=== PATIENT | male | born 1970 | race Caucasian/White ===

== ENCOUNTER 2020-10-03 08:22 | Outpatient (CLI) | payer SELFPAY ==
--- NOTE | 2020-10-03 08:24 | MR_ITS ---
WS: [id number] MRI LUMBAR SPINE NONCONTRAST HISTORY: LOW BACK PAIN COMPARISON: None available. TECHNIQUE: Sagittal and axial multisequence imaging is submitted. Normal lumbar alignment with no compression fractures or marrow edema. Disc spaces and vertebral body heights are well-preserved. Conus terminates normally at L1. L1-L2: Moderate sized RIGHT foraminal disc protrusion with annular fissures. Disc is contacting the L 1 nerve root. Mild RIGHT foraminal stenosis. L2-L3: Mild annular disc bulging without facet and ligamentum flavum arthritis. L3-L4: Mild annular disc bulging with facet and ligamentum flavum arthritis. Very mild encroachment i nto the foramen with mild foraminal narrowing. L4-L5: Mild bilateral facet joint arthritis. L5-S1: Normal. Paravertebral soft tissues are normal. MR/MR lumbar spine wo con* [id number] IMPRESSION: 1. Moderate size RIGHT foraminal disc protrusion with annular fissures at L1-2 . Minimal contact on the RIGHT L1 nerve root and mild foraminal stenosis. 2. Mild bilateral foraminal narrowing at L3-4.
== END 2020-10-03 08:23 | disposition home or self-care (01) ==
PROVIDERS: Family Provider Family Medicine; PCP Nurse Practitioner Family; Visit Provider Nurse Practitioner Family
DX: M51.26 Other intervertebral disc displacement, lumbar region (principal); M48.061 Spinal stenosis, lumbar region without neurogenic claudication
CPT/HCPCS: 72148

== ENCOUNTER 2021-05-10 21:07 | Emergency (ER) | payer SELFPAY ==
[2021-05-10 21:20] VITALS: BP 148/82; PULSE 103; RESP 20; TEMP 38.2; O2SAT 95; BMI 32.8
--- NOTE | 2021-05-10 21:36 | ED_ITS ---
HPI - COVID General: Chief Complaint: COVID symptoms Stated Complaint: COVID+: DIFF BREATHING Time Seen by Provider: 05/10/21 21:17 Source: patient Mode of arrival: ambulatory Limitations: no limitations Triage information: Has fever, cough or shortness of breath . Exposure to COVID + person last 14 days History of Present Illness: HPI Narrative: Patient has been feeling unwell for 7 days. Tested positive for COVID-19 5 days ago. His primary care provider gave him azithromycin and dexamethasone. Patient states that he initially started feeling better but symptoms started worsening again. Symptoms include body aches, fever, chills, but no difficulty breathing. He has a pulse oximeter at home and his oxygen saturations has been above 90%. He is here to be evaluated because of the cough and chills. MD complaint: known COVID positive Prior covid testing: yes, results known COVID 19 common symptoms: positive fever(s), chills, cough, fatigue, body aches, headache(s), throat pain, nasal congestion and nausea; negative dyspnea, vomiting or diarrhea COVID 19 other sytmptoms: positive lethargy; negative chest pain, pleuritic pain, requiring oxygen, requiring more oxygen, respiratory distress, cyanosis, confusion or new neurological complaints Onset (ago): day(s) (7) Severity: moderate Pertinent comorbid conditions: hypertension COVID Results: No Data to Display Review of Systems General: Reports: 10 or more systems reviewed and unremarkable except in HPI and below Const: Reports: fever(s), chills, body aches and fatigue ENMT: Reports: throat pain and nasal congestion Card: Denies: chest pain Resp: Denies: dyspnea GI: Reports: nausea; Denies: vomiting or diarrhea Neuro: Reports: headache(s); Denies: confusion Physical Exam Const: COMMON NORMALS: no acute distress, average body habitus, patient oriented x3, no limitations, healthy appearing, alert and well nourished HENMT: COMMON NORMALS: normocephalic, atraumatic and moist oral mucous membranes HEAD & SCALP: normocephalic and atraumatic Neck/C-Spine: COMMON NORMALS: no meningeal signs and no JVD Resp: COMMON NORMALS: normal respiratory effort, No retractions, No use of accessory muscles, clear to auscultation bilaterally and percussion normal AUSCULTATION: clear to auscultation bilaterally PERCUSSION: percussion normal Cardio: COMMON NORMALS: no JVD, regular rate, regular rhythm, S1 normal heart sound present, S2 normal heart sound present, No gallops present (Cardio), No clicks present (Cardio), No murmurs present (Cardio), No rub (Cardio) and Peripheral pulses 2+ throughout RATE: regular rate RHYTHM: regular rhythm HEART SOUNDS: S1 normal heart sound present and S2 normal heart sound present PERIPHERAL PULSES: Peripheral pulses 2+ throughout GI: COMMON NORMALS: Normal to inspection, nondistended, normoactive bowel sounds present, Soft to palpation, non-tender, No hepatosplenomegaly present, no masses and no bruits PALPATION: Yes Soft to palpation and Yes No hepatosplenomegaly present Extremity: COMMON NORMALS: normal to inspection, full ROM, capillary refill normal, no calf tenderness and no pedal edema Neuro: COMMON NORMALS: patient oriented x3 SENSORIUM/ORIENTATION: Yes alert MENINGEAL SIGNS: Yes no meningeal signs Skin: COMMON NORMALS: no rashes or lesions noted, no wounds, turgor normal, no jaundice, no petechiae and no mottling GENERAL SKIN EXAM: no rashes or lesions noted and turgor normal Course Reevaluation(s): Reevaluation #1: Discussed his lab and imaging findings with him. Unremarkable. We will discharge him home with no new orders. He already has dexamethasone and he has a pulse oximeter at home. Advised him to continue to monitor his oxygen saturation levels and to return if it drops below 90%. He voiced understanding and is in agreement with the plan. Time: 23:37 Vital Signs: Vital signs: Vital Signs Temperature 99.9 F H 05/10/21 23:47 Pulse Rate 88 05/10/21 23:47 Respiratory Rate 16 05/10/21 23:47 Blood Pressure 119/84 05/10/21 23:47 Pulse Oximetry 93 05/10/21 23:47 MDM - COVID MDM Narrative: Medical decision making narrative: 50-year-old male with COVID- 19 who presents to the emergency department for evaluation. Symptoms have been going on for about 7 days but she continues to have fever and body aches. No difficulty breathing, no hypoxia in the ED. Evaluation unremarkable. He is discharged home with no new orders. Medical Records: Attestation: I reviewed the patient's medical records. Lab Data: Attestation: I reviewed the patient's lab results. Labs: Lab Results 05/10/21 05/10/21 05/10/21 Range/Units 22:01 22:01 22:01 WBC 17.6 H (4.0-10.0) 10^3/ uL RBC 4.96 (4.1-5.3) 10^6/u L Hgb 14.9 (11.7-16.6) g/dL Hct 44.6 (42.0-52.0) % MCV 89.9 (80-94) fL MCH 30.0 (28.0-34.0) pg MCHC 33.4 (30.0-36.0) g/dL RDW 12.4 (12.1-15.1) % Plt Count 256 (130-400) 10^3/c mm MPV 11.4 H (7.4-10.4) fL Neut % (Auto) 81.3 % Lymph % (Auto) 8.4 % Armstrong % (Auto) 8.5 % Eos % (Auto) 0.1 % Baso % (Auto) 0.3 % Neut # (Auto) 14.30 H (1.8-7.7) 10^3/u L Lymph # (Auto) 1.5 (0.8-4.8) 10^3/u L Armstrong # (Auto) 1.5 H (0.2-0.9) 10^3/u L Eos # (Auto) 0.0 (0.0-0.8) 10^3/u L Baso # (Auto) 0.1 (0.0-0.1) 10^3/u L Nucleated RBC % (a uto) 0 % Nucleated RBCs # 0.0 /100WBC Fibrinogen 579 H (174-498) mg/dL D-Dimer 0.57 (0-0.59) ug/mIFE U Sodium 134 L (136-145) mmol/L Potassium 3.3 L (3.5-5.1) mmol/L Chloride 93 L (98-107) mmol/L Carbon Dioxide 27 (22-29) mmol/L Anion Gap 17.3 (5-19) BUN 18 (6-20) mg/dL Creatinine 1.1 (0.7-1.2) mg/dL GFR Calculation 71.1 L (90-130) mL/min Glucose 95 (65-115) mg/dL Calculated Osmolal ity 280 L (285-295) mOsm/k g Lactic Acid (0.5-2.2) mmol/L Calcium 8.6 (8.5-10.5) mg/dL Total Bilirubin 0.8 (0.15-1.2) mg/dL AST 19 (0-40) U/L ALT 36 (0-41) U/L Alkaline Phosphata se 86 (40-130) IU/L Creatine Kinase 37 L (39-308) U/L C-Reactive Protein 45.8 H (0.0-4.9) mg/L Total Protein 7.3 (6.6-8.7) g/dL Albumin 4.1 (3.5-5.2) g/dL Globulin 3.2 (1.3-4.6) g/dL Procalcitonin 0.14 (0-0.5) ng/mL 07/25/ Range/Units 22:01 WBC (4.0-10.0) 10^3/ uL RBC (4.1-5.3) 10^6/u L Hgb (11.7-16.6) g/dL Hct (42.0-52.0) % MCV (80-94) fL MCH (28.0-34.0) pg MCHC (30.0-36.0) g/dL RDW (12.1-15.1) % Plt Count (130-400) 10^3/c mm MPV (7.4-10.4) fL Neut % (Auto) % Lymph % (Auto) % Armstrong % (Auto) % Eos % (Auto) % Baso % (Auto) % Neut # (Auto) (1.8-7.7) 10^3/u L Lymph # (Auto) (0.8-4.8) 10^3/u L Armstrong # (Auto) (0.2-0.9) 10^3/u L Eos # (Auto) (0.0-0.8) 10^3/u L Baso # (Auto) (0.0-0.1) 10^3/u L Nucleated RBC % (a uto) % Nucleated RBCs # /100WBC Fibrinogen (174-498) mg/dL D-Dimer (0-0.59) ug/mIFE U Sodium (136-145) mmol/L Potassium (3.5-5.1) mmol/L Chloride (98-107) mmol/L Carbon Dioxide (22-29) mmol/L Anion Gap (5-19) BUN (6-20) mg/dL Creatinine (0.7-1.2) mg/dL GFR Calculation (90-130) mL/min Glucose (65-115) mg/dL Calculated Osmolal ity (285-295) mOsm/k g Lactic Acid 1.3 (0.5-2.2) mmol/L Calcium (8.5-10.5) mg/dL Total Bilirubin (0.15-1.2) mg/dL AST (0-40) U/L ALT (0-41) U/L Alkaline Phosphata se (40-130) IU/L Creatine Kinase (39-308) U/L C-Reactive Protein (0.0-4.9) mg/L Total Protein (6.6-8.7) g/dL Albumin (3.5-5.2) g/dL Globulin (1.3-4.6) g/dL Procalcitonin (0-0.5) ng/mL Imaging Data: CXR: Attestation: I personally reviewed and interpreted this imaging study as follows: Radiologist's impression: [address] [id number] ReportSigned Patient: Iza Mcpherson #: [id number]: 1970Acct#:[id number]/Sex: 50 / MADM Date: 05/10/21Loc: ERRoom/Bed:Attending Dr: Ordering Provider/Ordering MD: Catarino Colbert [place] [facility] [place] Service: 05/10/21 Procedure(s): XR chest 1V portable [id number] Accession Number(s): [id number] Report Number: [id number] PROCEDURE INFORMATION: Exam: XR Chest Exam date and time: 05/10/2021 9:39 PM Age: 50 years old Clinical indication: Dyspnea; Additional info: JUANITA Espinoza TECHNIQUE: Imaging protocol: XR of the chest. Views: 1 view. COMPARISON: No relevant prior studies available. FINDINGS: Lungs: Lungs are clear bilaterally. Pleural spaces: No pleural effusion. No pneumothorax. Heart/Mediastinum: The cardiac silhouette and mediastinal contours are unremarkable. Bones/joints: Unremarkable for age. XR/XR chest 1V portable [id number] IMPRESSION: No acute cardiopulmonary process. Dictated By:Roro Kellogg MDSigned By:Roro Kellogg MDSigned Date/Time:05/10/212337DD/ 36 COVID Results: No Data to Display Monoclonal Antibody Treatments Inclusion/Exclusion Criteria weight >/= 40 kg and + direct Sars-Cov-2 test less than 7-10 days ago age not >/= 65, BMI not >/= 35, does not have diabetes, does not have CKD, not receiving immunosuppressive therapy, does not have immunosuppressive disease, not >/= 55 with hypertension, not >/= 55 with diabetes, not >/= 55 with COPD/lung disease, not 12-17y with BMI >/= 85th percentile, not 12-17y with heart disease, not 12-17y with sickle cell disease, not 12-17y with neurodevelopemental d/o, not 12-17y with asthma/RAD/lung disease and not 12-17y w/ center medical director dependence not requiring hospitalization, not requiring oxygen (if not chronically on oxygen) and no increase oxygen requirement (if chronically on oxygen) Plan for treatment Does not meet criteria (DO NOT GIVE) Discharge Plan Discharge Patient Disposition: Home Clinical Impression: COVID-19 Condition: Stable Discharge Orders: Discharge ED (Routine); Ordered 05/10/21 Ordered By: Catarino Colbert Referrals: Radha Hinds FNP-C [Primary Care Provider] - 1-3 days Discharge Diet: Usual diet Discharge Activity: Increase activity as tolerated Patient Instructions: Viral Syndrome (ED) Activity Restrictions/Additional Instructions: Return for any new or worsening symptoms. Follow-up with your primary care provider within 3 days via telemedicine. Complete the steroids that your primary care provider gave you. Check your oxygen saturations using your home pulse oximeter. If your oxygen levels drop and stay below 90% then you need to return to be evaluated. Coding Level of Care Code ED Striper for Rhonda Stokes
--- NOTE | 2021-05-10 21:39 | XRR_ITS ---
PROCEDURE INFORMATION: Exam: XR Chest Exam date and time: 05/10/2021 9:39 PM Age: 50 years old Clinical indication: Dyspnea; Additional info: JUANITA Espinoza TECHNIQUE: Imaging protocol: XR of the chest. Views: 1 view. COMPARISON: No relevant prior studies available. FINDINGS: Lungs: Lungs are clear bilaterally. Pleural spaces: No pleural effusion. No pneumothorax. Heart/Mediastinum: The cardiac silhouette and mediastinal contours are unremarkable. Bones/joints: Unremarkable for age. XR/XR chest 1V portable [id number] IMPRESSION: No acute cardiopulmonary process.
[2021-05-10 22:00] VITALS: BP 143/91; PULSE 98; RESP 17; O2SAT 93; O2SAT 95
[2021-05-10 22:14] LABS: Basophils # 0.1 10^3/uL (0.0-0.1); Basophils % 0.3 %; Eosinophils % 0.1 %; Hematocrit 44.6 % (42.0-52.0); Hemoglobin 14.9 g/dL (11.7-16.6); Lymphocytes # 1.5 10^3/uL (0.8-4.8); Lymphocytes % 8.4 %; Mean Corpuscular HGB Conc 33.4 g/dL (30.0-36.0); Mean Corpuscular Volume 89.9 fL (80-94); Mean Platelet Volume 11.4 fL (7.4-10.4); Monocytes # 1.5 10^3/uL (0.2-0.9); Monocytes % 8.5 %; Neutrophils % 81.3 %; Nucleated Red Blood Cells % 0 %; Platelet Count 256 10^3/cmm (130-400); Red Blood Count 4.96 10^6/uL (4.1-5.3); Red Cell Distribution Width 12.4 % (12.1-15.1); White Blood Count 17.6 10^3/uL (4.0-10.0)
[2021-05-10 22:30] LABS: Fibrinogen 579 mg/dL (174-498)
[2021-05-10 22:33] LABS: D Dimer 0.57 ug/mIFEU (0-0.59)
[2021-05-10 22:34] LABS: Lactic Sepsis W/Reflex 1.3 mmol/L (0.5-2.2)
[2021-05-10 22:57] LABS: Alanine Aminotransferase 36 U/L (0-41); Albumin Level 4.1 g/dL (3.5-5.2); Alkaline Phosphatase 86 IU/L (40-130); Anion Gap 17.3 (5-19); Aspartate Amino Transferase 19 U/L (0-40); Blood Urea Nitrogen 18 mg/dL (6-20); C Reactive Protein 45.8 mg/L (0.0-4.9); Calcium 8.6 mg/dL (8.5-10.5); Carbon Dioxide 27 mmol/L (22-29); Chloride 93 mmol/L (98-107); Creatine Phosphokinase 37 U/L (39-308); Creatinine Clr Calc Pharmacy 100.9015; Globulin 3.2 g/dL (1.3-4.6); Glomerular Filtration Rate 71.1 mL/min (90-130); Glucose 95 mg/dL (65-115); Osmolality Calculated 280 mOsm/kg (285-295); Potassium 3.3 mmol/L (3.5-5.1); Sodium 134 mmol/L (136-145); Total Bilirubin 0.8 mg/dL (0.15-1.2); Total Protein 7.3 g/dL (6.6-8.7)
[2021-05-10 23:01] LABS: Procalcitonin 0.14 ng/mL (0-0.5)
[2021-05-10 23:47] VITALS: BP 119/84; PULSE 88; RESP 16; TEMP 37.7; O2SAT 93
== END 2021-05-10 23:48 | disposition home or self-care (01) ==
PROVIDERS: Emergency Provider Family Medicine; PCP Nurse Practitioner Family
DX: U07.1 COVID-19 (principal)
CPT/HCPCS: 71045; 80053; 82550; 83605; 84145; 85025; 85378; 85384; 86140; 99283

== ENCOUNTER → 2023-03-10 08:36 | Outpatient (BNVA) | payer MEDICAID, SELFPAY | PROVIDERS: PCP Nurse Practitioner Family; Referring Provider Nurse Practitioner Family; Visit Provider Orthopaedic Surgery | DX: M47.22 Other spondylosis with radiculopathy, cervical region (principal); M48.061 Spinal stenosis, lumbar region without neurogenic claudication; M25.78 Osteophyte, vertebrae | CPT/HCPCS: 72050; 99204 ==

== ENCOUNTER → 2023-03-23 13:13 | Outpatient (BNVA) | payer MEDICAID, SELFPAY | PROVIDERS: PCP Nurse Practitioner Family; Visit Provider Orthopaedic Surgery | DX: M67.912 Unspecified disorder of synovium and tendon, left shoulder (principal) | CPT/HCPCS: 20610; 99203; J0702; J3490 ==

== ENCOUNTER → 2023-04-12 10:11 | Outpatient (BNVA) | payer MEDICAID, SELFPAY | PROVIDERS: PCP Nurse Practitioner Family; Referring Provider Orthopaedic Surgery; Visit Provider Anesthesiology Pain Medicine | DX: M47.22 Other spondylosis with radiculopathy, cervical region (principal); M79.602 Pain in left arm; M79.601 Pain in right arm | CPT/HCPCS: 99205 ==

== ENCOUNTER → 2023-04-26 14:57 | Outpatient (BNVA) | payer MEDICAID, SELFPAY | PROVIDERS: PCP Nurse Practitioner Family; Visit Provider Nurse Practitioner Family | DX: M67.912 Unspecified disorder of synovium and tendon, left shoulder (principal); M47.22 Other spondylosis with radiculopathy, cervical region | CPT/HCPCS: 99213 ==

== ENCOUNTER → 2023-04-28 14:58 | Outpatient (BNVA) | payer MEDICAID, SELFPAY | PROVIDERS: PCP Nurse Practitioner Family; Visit Provider Anesthesiology Pain Medicine | DX: M54.12 Radiculopathy, cervical region (principal) | CPT/HCPCS: 62321; J1100 ==

== ENCOUNTER → 2023-05-12 09:50 | Outpatient (BNVA) | payer MEDICAID, SELFPAY | PROVIDERS: PCP Nurse Practitioner Family; Visit Provider Anesthesiology Pain Medicine | DX: M47.22 Other spondylosis with radiculopathy, cervical region | CPT/HCPCS: 99214 ==

== ENCOUNTER → 2023-05-26 15:27 | Outpatient (BNVA) | payer MEDICAID, SELFPAY | PROVIDERS: PCP Nurse Practitioner Family; Visit Provider Orthopaedic Surgery | DX: M47.12 Other spondylosis with myelopathy, cervical region (principal); M50.223 Other cervical disc displacement at C6-C7 level; M50.222 Other cervical disc displacement at C5-C6 level; M50.221 Other cervical disc displacement at C4-C5 level | CPT/HCPCS: 36415; 72050; 80053; 81003; 85025; 99214 ==

== ENCOUNTER 2023-06-17 12:11 | Inpatient (IN) | payer MEDICAID, SELFPAY ==
[2023-06-07 12:37] VITALS: BMI 33.5
[2023-06-17] VITALS (14 sets, daily range): BP systolic 130–186; BP diastolic 60–107; PULSE 70–104; RESP 16–17; TEMP 36.1–36.9; O2SAT 91–99; BMI 34.8
--- NOTE | 2023-06-17 | XR_ITS ---
WS: [id number] Cervical spine, C-arm fluoroscopy views, 06/17/2023 Clinical Data: SURGICAL PROCEDURE Comparison: Cervical spine, 05/26/2023 Findings: Dr. Price performed an anterior cervical disc fusion C4-C7. Impression: Anterior cervical disc fusion
--- NOTE | 2023-06-17 07:49 | W.PM.OPSUD ---
Surgery/Procedure H&P Update DATE OF PROCEDURE: June 17, 2023 DATE H&P PERFORMED: 05/26/23 H&P UPDATE INFORMATION: I have reviewed H&P completed within last 30 days, I have examined patient prior to procedure and No changes to prior documentation PREOP DIAGNOSIS: Cervical spondylosis with myelopathy PLANNED PROCEDURE: Operation Date: 06/17/23 08:45 Proposed Procedures p 34175 C4/5, 27831 C5/6, 33418 C6/7, 21393 Instrumentation, allograft: M47.12 cervical spondylosis with myelopathy(Not Applicable) - Rocky Price DO
[2023-06-17 07:53] LABS: Glucose Point of Care 120 mg/dL (70-110)
[2023-06-17] MEDS: sodium chloride 0.9% 1,000 ML 30 ML IV (07:54)
--- NOTE | 2023-06-17 08:07 | ANES.PREANE2 ---
Pre-Anesthetic Assessment Height/Weight: Height 1.8 m Weight 113.398 kg O2 Del Method Room Air 06/17/23 07:27 Preop Diagnosis: Cervical spondylosis with myelopathy Operation Date: 06/17/23 08:45 Proposed Procedures p 55699 C4/5, 42438 C5/6, 40302 C6/7, 80016 Instrumentation, allograft: M47.12 cervical spondylosis with myelopathy(Not Applicable) - Rocky Price DO Familial anesthetic complications: None Was Beta Jared taken within 24 hours: N/A Was Clonidine taken within 24 hours: N/A Last intake: > 8hrs Social No alcohol and No tobacco Exam alert, oriented x 3, clear to auscultation bilaterally and regular rate & rhythm Airway Mallampati: Class III Dentition: other (missing) Pulmonary Sleep Apnea CV/HEM Hypertension Metabolic Diabetes Mellitus and Hyperlipidemia Anesthetic Plan ASA status: 3 Anesthesia: General Risk of > 500 ml blood loss (7ml/kg in children): No Medications/Allergies Home Medications Medication Instructions Recorded Confirmed Last Taken Type atorvastatin 20 mg tablet 20 mg PO DAILY 03/23/23 06/17/23 06/16/23 History buspirone 15 mg tablet 15 mg PO BID 03/23/23 06/17/23 06/17/23 History duloxetine 60 mg capsule,delayed 60 mg PO DAILY 03/23/23 06/17/23 06/16/23 History release lisinopril 10 mg tablet 10 mg PO DAILY 03/23/23 06/16/23 06/07/23 History alprazolam 0.25 mg tablet (Xanax) 0.25 mg PO DAILY PRN Anxiety 04/26/23 06/16/23 Unknown History cholecalciferol (vitamin D3) 10 10 mcg PO DAILY 04/26/23 06/17/23 06/17/23 History mcg (400 unit) capsule mecobalamin (vitamin B12) 1,000 1,000 mcg PO DAILY 04/26/23 06/17/23 06/16/23 History mcg lozenges metformin 500 mg tablet 500 mg PO BID 04/26/23 06/17/23 06/16/23 History nebivolol 10 mg tablet (Bystolic) 10 mg PO DAILY 04/26/23 06/17/23 06/17/23 History rabeprazole 20 mg tablet,delayed 20 mg PO DAILY 04/26/23 06/17/23 06/16/23 History release [id number] Bone Growth Stimulator #1 ea 06/10/23 Unknown Rx Allergies Allergy/AdvReac Type Severity Reaction Status Date / Time No Known Allergies Allergy Verified 06/16/23 14:15 Current Medications Generic Name Dose Route Start Last Admin Trade Name Freq PRN Reason Stop Dose Admin Sodium Chloride 1,000 mls @ 30 mls/hr 06/17/23 07:30 06/17/23 07:54 Sodium Chloride 0.9% IV 06/18/23 07:29 30 mls/hr .Q24H PIETRO Administration PFSH Anesthesia Social History Smoking and tobacco status: never smoked Alcohol intake: current Alcohol intake frequency: holidays/special occasions only Marital status: Current occupational status: unemployed Data Anesthesia Cardiac Studies: No Data to Display
[2023-06-17] MEDS: ceFAZolin 2,000 MG in sodium chloride 0.9% (plus) 50 ML 100 MG IV ×2 (09:15→16:25)
[2023-06-17] MEDS: lidocaine-epi 1% 20 mL INJ INJECTION (10:07)
--- NOTE | 2023-06-17 11:50 | PM.OP ---
Operative Report Date of procedure: June 17, 2023 Pre-op diagnosis: Cervical spondylosis with radiculopathy and myelopathy. Post-op diagnosis: same Procedure done: 1. Anterior diskectomy C4/5 2. Anterior diskectomy C5/6 3. Anterior discectomy C6/7 4. Insertion of cage C4/5 5. Insertion of cage C5/6 6. Insertion of Cage C6/7 7. Instrumentation with anterior plate from C4-C7 8. Use of allograft Surgeon: Rocky Price DO Right Of Way Agent: None Estimated blood loss (mL): 25 Procedure: 1. Anterior diskectomy C4/5 2. Anterior diskectomy C5/6 3. Anterior discectomy C6/7 4. Insertion of cage C4/5 5. Insertion of cage C5/6 6. Insertion of Cage C6/7 7. Instrumentation with anterior plate from C4-C7 8. Use of allograft The patient was taken to the operating room, where he underwent general endotracheal anesthesia without complications. He was then positioned supine on the operating table, and all areas of impingement were well padded. The arms were carefully padded and tucked at his sides. A roll was placed between the shoulder blades.. An x-ray was done to determine the appropriate level for the skin incision. The entire neck was then sterilely prepped and draped in the usual fashion. Neuromonitoring was attached prior to prepping. A transverse skin incision was made and carried down to the platysma muscle. This was then split in line with its fibers. Blunt dissection was carried down medial to the carotid sheath and lateral to the trachea and esophagus until the anterior cervical spine was visualized. A needle was placed into a disc and an x-ray was done to determine its location. The longus colli muscles were then elevated bilaterally with the electrocautery unit. Self-retaining retractors were placed deep to the longus colli muscle. Attention was brought to the C4/5 level that was confirmed on x-ray. A caspar pin was placed into the C4 vertebrae and the C5 vertebrae. The disk space was then distracted. The microscope was then brought in. A radical anterior discectomies were performed at C4/5. This included complete removal of the anterior annulus, nucleus, and posterior annulus. The posterior longitudinal ligament was removed as were the posterior osteophytes. Foraminotomies were then accomplished bilaterally. This was done using a high speed dana, kerrison rongeurs and curretes Once all of this was accomplished, the curved currette was used to check for any residual compression. The central canal was wide open as were the foramen. A high-speed bur was used to remove the cartilaginous endplates above and below the interspace. Bleeding cancellous bone was exposed. The disc space were measured and appropriate size cage were placed sterilely onto the field. Allograft graft was packed into the cages. The cage was then placed and there was good juxtaposition against the bleeding decorticated surfaces and good distraction of each interspace. Attention was brought to the next interspace. The [place] pins were removed. Bone wax was used to prevent any bleeding from occurring at the pin sites. Attention was brought to the C5/6 level that was confirmed on x-ray. A caspar pin was placed into the C5 vertebrae and the C6 vertebrae. The disk space was then distracted. The microscope was then brought in. A radical anterior discectomies were performed at C5/6. This included complete removal of the anterior annulus, nucleus, and posterior annulus. The posterior longitudinal ligament was removed as were the posterior osteophytes. Foraminotomies were then accomplished bilaterally. This was done using a high speed dana, kerrison rongeurs and curretes Once all of this was accomplished, the curved currette was used to check for any residual compression. The central canal was wide open as were the foramen. A high-speed bur was used to remove the cartilaginous endplates above and below the interspace. Bleeding cancellous bone was exposed. The disc space were measured and appropriate size cage were placed sterilely onto the field. Allograft graft was packed into the cages. The cage was then placed and there was good juxtaposition against the bleeding decorticated surfaces and good distraction of each interspace. Attention was brought to the next interspace. The [place] pins were removed. Bone wax was used to prevent any bleeding from occurring at the pin sites. Attention was brought to the C6/7 level that was confirmed on x-ray. A caspar pin was placed into the C6 vertebrae and the C7 vertebrae. The disk space was then distracted. The microscope was then brought in. A radical anterior discectomies were performed at C6/7. This included complete removal of the anterior annulus, nucleus, and posterior annulus. The posterior longitudinal ligament was removed as were the posterior osteophytes. Foraminotomies were then accomplished bilaterally. This was done using a high speed dana, kerrison rongeurs and curretes Once all of this was accomplished, the curved currette was used to check for any residual compression. The central canal was wide open as were the foramen. A high-speed bur was used to remove the cartilaginous endplates above and below the interspace. Bleeding cancellous bone was exposed. The disc space were measured and appropriate size cage were placed sterilely onto the field. Allograft graft was packed into the cages. The cage was then placed and there was good juxtaposition against the bleeding decorticated surfaces and good distraction of each interspace. Attention was brought to the next interspace. The [place] pins were removed. Bone wax was used to prevent any bleeding from occurring at the pin sites. The appropriate size anterior cervical locking plate was chosen and bent into gentle lordosis. Two screws were then placed into each of the vertebral bodies at C4, C5, C6 and C7. There was excellent purchase. A final x-ray was done confirming good position of the hardware and Cages. The locking screws were then applied, also with excellent purchase. Following a final copious irrigation, there was good hemostasis and no dural leaks. The carotid pulse was strong. The wounds were then closed in layers using 2-0 Vicryl suture for the platysma muscle, 2-0 Vicryl suture for the subcutaneous tissue, and 4-0 monocryl suture in a subcuticular skin closure. Glue was placed followed by application of a sterile dressing. The drain was hooked to bulb suction. A soft collar was applied. The patient was then carefully returned to the supine position on his hospital bed where he was reversed and extubated and taken to the recovery room having tolerated the procedure well.
--- NOTE | 2023-06-17 12:50 | ANE.PACU2 ---
Inpatient post-anesthesia follow up: Airway intact: Yes Vital signs: Temperature 98.2 F Pulse Rate 89 Respiratory Rate 16 Blood Pressure 157/92 Pulse Oximetry 93 Oxygen Delivery Me thod Room Air Oxygen Flow Rate 6 Fraction of Inspir ed Oxygen Hydration adequate: Yes Nausea and vomiting: No Pain level: 1 Mental status: Baseline
[2023-06-17] MEDS: lactated ringers 1,000 ML 90 ML IV (13:29)
[2023-06-17] MEDS: ketorolac 30 mg/mL INJ IVP (15:31)
[2023-06-17] MEDS: metformin 500 mg Tablet PO (17:29)
[2023-06-17] MEDS: docusate sodium 100 mg Capsule PO (17:29)
[2023-06-17] MEDS: BuSPIRONE 10 mg Tablet 15 MG PO (17:29)
[2023-06-17] MEDS: ALPRAZolam 0.5 mg Tablet 0.25 MG PO (21:36)
[2023-06-17] MEDS: HYDROcodone-acetaminophen 5-325 mg Tablet PO (21:51)
[2023-06-18] MEDS: ceFAZolin 2,000 MG in sodium chloride 0.9% (plus) 50 ML 100 MG IV ×2 (01:42→09:27)
[2023-06-18] MEDS: lactated ringers 1,000 ML 90 ML IV (01:43)
[2023-06-18 03:56] VITALS: BP 152/84; PULSE 101; RESP 15; TEMP 36.6; O2SAT 94
[2023-06-18 07:49] VITALS: BP 151/81; PULSE 95; RESP 16; TEMP 36.3; O2SAT 97
[2023-06-18] MEDS: docusate sodium 100 mg Capsule PO (09:25)
[2023-06-18] MEDS: cyanocobalamin 1,000 mcg Tablet 1000 MCG PO (09:25)
[2023-06-18] MEDS: metformin 500 mg Tablet PO (09:26)
[2023-06-18] MEDS: BuSPIRONE 10 mg Tablet 15 MG PO (09:26)
[2023-06-18] MEDS: pantoprazole DR 40 mg Tablet PO (09:27)
[2023-06-18] MEDS: lisinopril 10 mg Tablet PO (09:27)
[2023-06-18] MEDS: HYDROcodone-acetaminophen 5-325 mg Tablet PO (09:37)
[2023-06-18] MEDS: cetylpyridinium Lozenge 1 EACH MUCOUS MEM (09:39)
--- NOTE | 2023-06-18 10:26 | P.DS_ITS ---
Discharge Providers Date of Admission: 06/17/23 12:11 Date of Discharge: June 18, 2023 Attending Provider at Admission: Rocky Price DO Attending Provider at Discharge: Rocky Price DO Primary Care Provider: Radha Hinds Reason for Visit Reason for Visit: [id number], M47.12 Hospital Course Hospital Course Doing well drain came out last night. He is having swallowing difficulties. However reassured him that these typically get better within the next couple days. Physical Exam Narrative: Patient's hands and elbows feel pain-free. Discontinued swallowing problems. Patient is currently in the collar I told him to loosen the collar and when he eats to take the collar off. Urinary Catheter Management: Naidu: Cath Placed During This Visit: yes, but has since been removed by the nurse Reason for Continuing Indwelling Catheter: Not indwelling catheter Urinary Catheter Date of Insertion: 06/17/23 Urinary Catheter Time of Insertion: 09:45 Date Urinary Catheter Removed: 06/18/23 Time Urinary Catheter Discontinued: 09:50 Discharge Data Studies Completed and Pending Pending at discharge Category Date Time Status C-arm Fluoroscopy 98649 Routine Exams 06/17/23 07:28 Taken Laboratory Results POC Glucose 120 mg/dL (70-110) H 06/17/23 07:50 Vitals Last Vital Signs Temp 97.4 F L 06/18/23 07:49 Pulse 95 06/18/23 07:49 Resp 16 06/18/23 07:49 BP 151/81 06/18/23 07:49 Pulse Ox 97 06/18/23 07:49 O2 Del Method Nasal Cannula 06/18/23 07:49 O2 Flow Rate 2 06/18/23 07:49 Discharge Plan Discharge Patient Disposition: Home Condition: Stable Prescriptions: New hydrocodone-acetaminophen 5-325 mg tablet 1 - 2 tab PO .Q4-6H Qty: 40 0RF Continued atorvastatin 20 mg tablet 20 mg PO DAILY lisinopril 10 mg tablet 10 mg PO DAILY buspirone 15 mg tablet 15 mg PO BID duloxetine 60 mg capsule,delayed release(DR/EC) 60 mg PO DAILY metformin 500 mg tablet 500 mg PO BID nebivolol [Bystolic] 10 mg tablet 10 mg PO DAILY rabeprazole 20 mg tablet,delayed release (DR/EC) 20 mg PO DAILY alprazolam [Xanax] 0.25 mg tablet 0.25 mg PO DAILY PRN (Reason: Anxiety) cholecalciferol (vitamin D3) 10 mcg (400 unit) capsule 10 mcg PO DAILY mecobalamin (vitamin B12) 1,000 mcg lozenge 1,000 mcg PO DAILY Rx Instructions: allow to dissolve in mouth OR may chew lightly before swallowing (DME) E0748 Bone Growth Stimulator See Rx Instructions .Route .MEDSUPPLY Qty: 1 0RF Rx Instructions: As directed Discharge Orders: Discharge Order (Routine); Ordered 06/18/23 Ordered By: Rocky Price Discharge Diet: Advance as tolerated Discharge Activity: Limit activity as instructed Activity Restrictions/Additional Instructions: Thank you for choosing [facility] for your care! The following is a list of instructions, from your provider, to follow upon your discharge to ensure you have the optimal recovery from your recent injury or surgery. Anterior Cervical Discectomy and Fusion: What to Expect at Home Your Recovery Follow-up care is a costello part of your treatment and safety. Be sure to make and go to all appointments, and call your doctor if you are having problems. If you do not already have a follow-up appointment made, call office in the next 1-3 days to make follow up appointment for 2 weeks at [phone]. It is also a good idea to know your test results and keep a list of the medicines you take. You can expect your neck to feel stiff or sore after surgery. This should improv e in the weeks after surgery. But it may take 4 to 6 months for you to get better completely. You may have trouble sitting or standing in one position for very long and may need pain medicine in the weeks after your surgery. It may take 4 to 6 weeks to get back to your usual activities, but it may depend on what kind of surgery you had. Your throat will feel sore and it may be difficult to swallow for the first 3 days after your surgery. As long as you can get liquids down without difficulty, this should slowly improve, otherwise call our office or seek medical attention if it becomes increasingly difficult to get anything down including liquids. Avoid hot liquids for first 3-5 days. Soothing foods/liquids such as jello, pudding, and luke warm soups are recommended until swallowing improves. Staying elevated will also help, it's advised you keep propped up at while sleeping to help reduce the swelling. You may use an ice pack directly on your incision or around it on the front of your neck, using a cloth to protect your skin; and a heating pad to the back of your neck as needed. Do not use over the counter anti-inflammatory medications (Ibuprofen, Motrin, Aleve, Advil, etc) Taking these meds after having a fusion can delay fusion rates, we recommend you avoid them for the first 3 months after your surgery[address] Dr. Price may advise you to work with a physical therapist to strengthen the muscles around your neck and back - this will be discussed at your follow - up appointments. The pain or numbness you were having in your arms before surgery should get better or go away completely. This care sheet gives you a general idea about how long it will take for you to recover. But each person recovers at a different pace. Follow the steps below to get better as quickly as possible. How can you care for yourself at home? Activity ? Rest when you feel tired. Getting enough sleep will help you recover. ? Try to walk each day. Start by walking a little more than you did the day before. Bit by bit, increase the amount you walk. Walking boosts blood flow and helps prevent pneumonia and constipation. Walking may also decrease your muscle soreness after surgery. ? No lifting anything that is more that 5 pounds. This may include heavy grocery bags and milk containers, a heavy briefcase or backpack, cat litter or dog food bags, a child, or a vacuum commercial or institutional cleaner. ? Avoid strenuous activities, such as bicycle riding, jogging, weightlifting, or aerobic exercise, until your doctor says it is okay. ? Do not drive until your follow-up visit after your surgery, or until your doctor says it isokay. ? Avoid taking long car trips for 2 to 4 weeks after surgery. Your neck may become tired and painful from sitting too long in one position. ? You will probably need to take 4 to 6 weeks off from work. It depends on the type of work you do and how you feel. ? You may have sex as soon as you feel able, but avoid positions that put stress on your neck or cause pain. Diet ? You can eat your normal diet. If your stomach is upset, try bland, low-fat foods like plain rice, broiled chicken, toast, and yogurt ? Drink plenty of fluids. If you have kidney, heart, or liver disease and have to limit fluids, talk with your doctor before you increase the amount of fluids you drink. ? You may notice that your bowel movements are not regular right after your surgery. This is common. Try to avoid constipation and straining with bowel movements. You may want to take a fiber supplement every day. If you have not had a bowel movement after a couple of days, ask your doctor about taking a mild laxative. Medicines ? Take pain medicines exactly as directed. 1. If Dr. Price gave you a prescription medicine for pain, take lt as prescribed. 2. Do not take two or more pain medicines at the same time unless the doctor told you to. Many pain medicines have acetaminophen, which is Tylenol. Too much acetaminophen {Tylenol) can be harmful. 3. If you think your pain pill is making you sick to your stomach: 4. Take your pills after meals (unless your doctor has told you not to). 5. Ask your Dr. for a different pain pill. Incisioncare ? Remove your dressing 48hours after your surgery. Ok to shower and get the incision wet. Do not overtly wash your incision. When done, pad dry, leave open to air thereafter. Avoid creams and ointments directly on your incision. ? Your sutures in the incision will dissolve and fall out on their own. ? Keep the area clean and dry. You may cover it with a gauze bandage if it weeps or rubs against clothing; if you choose to do this, change the dressing everyday. Other instructions ? Use a heating pad, hot water bottle, or gentle massage on your back to reduce stiffness. Avoid putting heat on your incision When should you call for help? ? Call 911 anytime you think you may need emergency care. For example, call if: ? You pass out (lose consciousness). ? You have sudden chest pain and shortness of breath, or you cough upblood. ? You cannot swallow. ? You have severe pain in your neck or back. ? Call your Dr. or seek immediate medical care if: ? You have pain that does not get better after you take pain pills. ? You have loose stitches, or your incision comes open. ? You have blood or fluid draining from the incision. ? You have signs of infection, such as: 1. Increased pain, swelling, warmth, or redness. 2. Red streaks leading from the site. 3. Pus draining from the site. 4. Swollen lymph nodes in your neck or armpits. 5. A fever. ? You have severe pain in your arms. ? You have new or increased weakness or numbness in your arms. ? Watch closely for any changes in your health, and be sure to contact your doctor if: ? You do not have a bowel movement after taking a laxative. Discharge Attestations Time Spent in Discharge Care*: less than 30 min Quality Metrics Clinical Quality Measures [ No reported AMI, CVA or VTE this stay] Coding Level of Care Code Acute Code for Chg Fwd Diagnoses
[2023-06-18] MEDS: ALPRAZolam 0.5 mg Tablet 0.25 MG PO (11:00)
[2023-06-18 12:26] VITALS: BP 151/81; PULSE 95; RESP 16; TEMP 36.3; O2SAT 97
== END 2023-06-18 12:10 | disposition home or self-care (01) | DRG 473 ==
LOC: MEDSURG 14:11
PROVIDERS: Admitting Provider Orthopaedic Surgery; PCP Nurse Practitioner Family; Visit Provider Orthopaedic Surgery
PROC: 0RB30ZZ Excision of Cervical Vertebral Disc, Open Approach (ICD-10-PCS; CPT 22551; principal; 2023-06-17 08:45)
DX: M47.12 Other spondylosis with myelopathy, cervical region (principal)
CPT/HCPCS: 36416; 51702; 72040; 76000; 82962; 94660; 97110; 97161; 97530; C1713; C1763; C9359; J0690; J1100; J1170; J1885; J2250; J2405; J2704; J3010; J3490; J7030; J7120

== ENCOUNTER → 2023-06-28 10:37 | Outpatient (BNVA) | payer MEDICAID, SELFPAY | PROVIDERS: PCP Nurse Practitioner Family; Visit Provider Physician Assistant | DX: Z47.89 Encounter for other orthopedic aftercare; Z98.1 Arthrodesis status | CPT/HCPCS: 72040; 99024 ==

== ENCOUNTER → 2023-07-26 13:27 | Outpatient (BNVA) | payer MEDICAID, SELFPAY | PROVIDERS: PCP Nurse Practitioner Family; Visit Provider Physician Assistant | DX: Z98.1 Arthrodesis status (principal); Z47.89 Encounter for other orthopedic aftercare; M25.512 Pain in left shoulder | CPT/HCPCS: 72040; 99024; 99213 ==

== ENCOUNTER → 2023-08-11 09:55 | Outpatient (BNVA) | payer MEDICAID, SELFPAY | PROVIDERS: PCP Nurse Practitioner Family; Visit Provider Anesthesiology Pain Medicine | DX: M25.512 Pain in left shoulder (principal); M54.9 Dorsalgia, unspecified; M47.22 Other spondylosis with radiculopathy, cervical region | CPT/HCPCS: 99214 ==

== ENCOUNTER → 2023-09-06 13:49 | Outpatient (BNVA) | payer MEDICAID, SELFPAY | PROVIDERS: PCP Nurse Practitioner Family; Visit Provider Physician Assistant | DX: Z98.1 Arthrodesis status (principal); Z47.89 Encounter for other orthopedic aftercare; M25.512 Pain in left shoulder | CPT/HCPCS: 72040; 99214 ==

== ENCOUNTER → 2023-09-12 10:18 | Outpatient (BNVA) | payer MEDICAID, SELFPAY | PROVIDERS: PCP Nurse Practitioner Family; Visit Provider Anesthesiology Pain Medicine | DX: M54.9 Dorsalgia, unspecified (principal); M47.22 Other spondylosis with radiculopathy, cervical region | CPT/HCPCS: 99213 ==

== ENCOUNTER 2023-10-05 06:55 | Outpatient (CLI) | payer MEDICAID, SELFPAY ==
--- NOTE | 2023-10-05 07:15 | MR_ITS ---
WS: [id number] MRI LEFT SHOULDER HISTORY: M25.512 - Pain in left shoulder COMPARISON: 02/24/2023 TECHNIQUE: Multiplanar sequences of the shoulder joint are submitted. Mild AC joint arthropathy. Narrowing of the AC joint with small osteophyte encroaching upon the supra spinatus tendon and muscle. Very minimal subacromial impingement. No os acromion. Biceps tendon in no rmal position. Humeral head is slightly high riding. Focal tendinopathy and insertion site tear of the supraspinatus tendon. There is no full-thickness tear or retraction of the tendon. Normal subscapularis tendon and infraspinatus tendons. No rotator cuff muscle edema or atrophy. There is increased T2 signal near th e rotator cuff interval. This is new since the prior exam. No labral tear is appreciated. IMPRESSION: 1. Focal small insertion site tear of the supraspinatus tendon with adjacent tendinopathy. No full-th ickness tear. 2. Mild AC joint arthritis with an osteophyte encroaching upon the supraspinatus muscle and tendon. 3. Normal biceps tendon. 4. Increased T2 signal in the rotator cuff interval suggesting mild injury or partial sprain. 5. No labral tear identified.
== END 2023-10-05 06:56 | disposition home or self-care (01) ==
LOC: RAD 06:55
PROVIDERS: PCP Nurse Practitioner Family; Visit Provider Anesthesiology Pain Medicine
DX: M13.812 Other specified arthritis, left shoulder (principal); M25.712 Osteophyte, left shoulder; M25.512 Pain in left shoulder
CPT/HCPCS: 73221

== ENCOUNTER → 2023-10-31 08:58 | Outpatient (BNVA) | payer MEDICAID, SELFPAY | PROVIDERS: PCP Nurse Practitioner Family; Visit Provider Nurse Practitioner | DX: M67.912 Unspecified disorder of synovium and tendon, left shoulder (principal); M62.838 Other muscle spasm; M47.22 Other spondylosis with radiculopathy, cervical region; M75.22 Bicipital tendinitis, left shoulder | CPT/HCPCS: 99214 ==

== ENCOUNTER → 2023-12-01 13:04 | Outpatient (BNVA) | payer MEDICAID, SELFPAY | PROVIDERS: PCP Nurse Practitioner Family; Visit Provider Orthopaedic Surgery | DX: Z98.1 Arthrodesis status (principal); Z47.89 Encounter for other orthopedic aftercare; M54.2 Cervicalgia | CPT/HCPCS: 72040; 99214 ==

== ENCOUNTER 2023-12-28 16:16 | Outpatient (CLI) | payer MEDICAID, SELFPAY ==
--- NOTE | 2023-12-28 16:45 | MR_ITS ---
WS: [id number] MRI CERVICAL SPINE NONCONTRAST TECHNIQUE: Sagittal T1, T2 and STIR imaging. Axial T2, gradient, and fiesta imaging. CLINICAL INFORMATION: neck pain COMPARISON: MRI 02/24/2023 FINDINGS: Straightening of the normal cervical lordosis. Postoperative changes ACDF C4-C7. Slight anterolisthes is C7 on T1. Postoperative changes are new since the prior MRI. C2-C3: Mild facet arthropathy. Spinal canal and foramen are patent. C3-C4: Mild disc bulging with slight effacement of the ventral thecal sac. Mild LEFT and no significa nt RIGHT foraminal narrowing. Mild facet arthropathy. Uncovertebral joint hypertrophy. C4-C5: Postoperative changes ACDF. Mild facet arthropathy. Mild RIGHT foraminal narrowing. Spinal can al and LEFT foramen are patent. C5-C6: ACDF. Mild RIGHT and no significant LEFT foraminal narrowing. Moderate facet arthropathy. Mild central canal stenosis. C6-C7: Postoperative changes ACDF. Central disc osteophyte protrusion at this level with slight conta ct of the cervical cord and mild central canal stenosis. Moderate bilateral bony foraminal narrowing. Uncovertebral joint hypertrophy. Moderate facet arthropathy. C7-T1: Slight anterolisthesis. Mild to moderate LEFT and no significant RIGHT foraminal narrowing. Sp ine canal is patent. LEFT eccentric disc osteophyte complex. Visualized brain stem structures: Normal. Prevertebral soft tissues: Normal. IMPRESSION: 1. Straightening of the normal cervical lordosis. Postoperative changes ACDF C4-C7 with interbody fu juliana grafts. 2. Disc osteophyte protrusion C6-7 with indentation on the cervical cord and mild central canal sten osis. Moderate bilateral bony foraminal narrowing. 3. Mild to moderate LEFT C7-T1 foraminal narrowing with LEFT eccentric disc osteophyte complex. 4. Osteophytic ridging C5-C6 with slight effacement of ventral thecal sac. Mild central canal stenos is with a RIGHT paracentral osteophyte. Mild RIGHT foraminal narrowing.
== END 2023-12-28 16:17 | disposition home or self-care (01) ==
LOC: RAD 16:16
PROVIDERS: PCP Nurse Practitioner Family; Visit Provider Orthopaedic Surgery
DX: Z98.1 Arthrodesis status (principal); M48.02 Spinal stenosis, cervical region; M25.78 Osteophyte, vertebrae; M67.912 Unspecified disorder of synovium and tendon, left shoulder; M62.838 Other muscle spasm; M47.22 Other spondylosis with radiculopathy, cervical region; M75.22 Bicipital tendinitis, left shoulder
CPT/HCPCS: 72141; 99214

== ENCOUNTER → 2024-01-10 13:05 | Outpatient (BNVA) | payer MEDICAID, SELFPAY | PROVIDERS: PCP Nurse Practitioner Family; Visit Provider Orthopaedic Surgery | DX: M47.22 Other spondylosis with radiculopathy, cervical region (principal); M54.50 Low back pain, unspecified | CPT/HCPCS: 99214 ==